=== PATIENT | female | born 1980 | race Caucasian/White ===

== ENCOUNTER 2023-01-15 15:28 | Emergency (ER) | payer OTHER, SELFPAY ==
--- NOTE | 2023-01-15 15:46 | ED.GENADULT ---
HPI - General Adult General Chief complaint: Shortness of Breath/Dyspnea Stated complaint: Shortness of Breath Time Seen by Provider: 01/15/23 15:46 Source: patient Mode of arrival: ambulatory Limitations: no limitations History of Present Illness HPI narrative: 42-year-old female patient presents to the [facility] with complaints of intermittent shortness of breath. Patient states she had COVID about 2 months ago and about 2 weeks ago received treatment for bronchitis and a sinus infection. Patient states that her coughing has resolved. Patient states that last night before bed she got an incident where she felt a little dizzy and felt like she was having shortness of breath. Patient states she went to go lay down and put her arms above her head and it eventually did go away. Denies any shortness of breath or chest pain currently. Denies any fevers or sick symptoms at this time. Patient states she was going to follow up with her doctor on Tuesday will want to come in today to make sure that there was no other physical symptoms of what could have cause the issues. Review of Systems Review of Systems: CONSTITUTIONAL: Denies fever, chills, or sweats. EYES: Denies visual changes, redness, or discharge. ENT: Denies rhinorrhea, congestion, sore throat, or otalgia. CARDIOVASCULAR: Denies chest pain, palpitations, or edema. RESPIRATORY: Denies cough Positive intermittent dyspnea. GASTROINTESTINAL: Denies abdominal pain, nausea, vomiting, or diarrhea. GENITOURINARY: Denies dysuria or hematuria. SKIN: Denies rash or itching. MUSCULOSKELETAL: Denies back pain, joint pain, or myalgia. NEUROLOGIC: Denies headache, numbness, or weakness. positive dizziness PSYCHIATRIC: Denies anxiety or depression. PMFSH Comments At the time of my signature I agree with nursing past medical history, surgical, social, and family history. There is no relevant family history pertinent to the presenting complaint. Exam Narrative: GENERAL: Well-appearing, well-nourished, and in no acute distress. HEAD: Normocephalic, atraumatic. EYES: PERRLA and EOMI. ENT: Nares clear, no rhinorrhea or epistaxis. Mucous membranes moist. bilateral TMs are clear no erythema or foreign bodies the canal. Posterior pharynx with no erythema, tonsillectomy, exudates or lesions present. NECK: Supple. No lymphadenopathy CHEST: Clear to auscultation. No respiratory distress. HEART: Regular rate and rhythm. No murmur heard. Normal peripheral pulses. ABDOMEN: Soft, nontender, nondistended, normal active bowel sounds. EXTREMITIES: Normal range of motion. No edema. SKIN: Warm, dry, no rash. NEURO: No focal deficits. Alert and oriented x3. Course Course Level of Care: Express Care Visit Vital Signs Vital signs: Vital Signs Temperature 36.3 C L 01/15/23 16:03 Pulse Rate 77 01/15/23 16:03 Respiratory Rate 18 01/15/23 16:03 Blood Pressure 128/80 01/15/23 16:03 Pulse Oximetry 100 01/15/23 16:03 Oxygen Delivery Room Air 01/15/23 16:03 Temperature 36.3 C L 01/15/23 16:03 Pulse Rate 77 01/15/23 16:03 Respiratory Rate 18 01/15/23 16:03 Blood Pressure 128/80 01/15/23 16:03 Pulse Oximetry 100 01/15/23 16:03 Oxygen Delivery Room Air 01/15/23 16:03 Vital signs reviewed Medical Decision Making MDM Narrative Medical decision making narrative: Plan care patient is to obtain an EKG to rule out any cardiac issues that could have been causing these episodes. Discussed with patient that if this looks okay she can follow up with her doctor for further evaluation. Her lungs sound nice and clear idea and I do not see any evidence of any lung infection or pneumonia at this time. Differential Diagnosis Differential Diagnosis: differential diagnoses Allergic rhinitis, chronic sinusitis, tonsillitis, acute sinusitis, infectious mononucleosis, seasonal influenza, pertussis, diphtheria, meningococcal disease, viral syndrome, viral bronchitis, RSV, COVID-19
[2023-01-15 16:03] VITALS: BP 128/80; PULSE 77; RESP 18; TEMP 36.3; O2SAT 100
--- NOTE | 2023-01-15 17:21 | ECG_ITS ---
Measurements Intervals [place] Rate: 69 P: 13 [place]: 185 QRS: 30 QRSD: 106 T: 28 QT: 388 QTc: 417 Interpretive Statements SINUS RHYTHM MINIMAL Q WAVES- INFERIOR LEADS BORDERLINE ECG NO PREVIOUS ECG AVAILABLE FOR COMPARISON Electronically Signed On 01-15-2023 21:38:02 CDT by Amaury Vicente D.O.
== END 2023-01-15 16:21 | disposition home or self-care (01) ==
PROVIDERS: Emergency Provider Nurse Practitioner Family
DX: F41.9 Anxiety disorder, unspecified (principal); R06.02 Shortness of breath; T50.B95A Adverse effect of other viral vaccines, initial encounter
CPT/HCPCS: 93005; 99203; G0463

== ENCOUNTER 2024-07-13 11:45 | Outpatient (CLI) | payer OTHER, SELFPAY ==
--- NOTE | ~2024-07-13 | MM_ITS ---
EXAMINATION: MM screening bridgette BI w jonathan HISTORY: Screening mammogram TECHNIQUE: Craniocaudal and mediolateral oblique 3-D tomosynthesis images were obtained and synthetic 2-D images were generated. CAD analysis was submitted and interpreted. COMPARISON: No prior mammogram is available for comparison at this institution. BREAST PARENCHYMAL COMPOSITION:Not Dense. There are scattered areas of fibroglandular density. FINDINGS: No suspicious mass, calcification, or architectural distortion are identified in either rachid ast to suggest malignancy. There has been no suspicious interval change. IMPRESSION: No mammographic evidence of malignancy. Recommend routine screening mammography in one year. BI-RADS Category 1: Negative Reviewed, dictated and finalized at location .
== END 2024-07-13 11:46 | disposition home or self-care (01) ==
LOC: MICIMG 11:46
PROVIDERS: PCP Nurse Practitioner; Visit Provider Nurse Practitioner
DX: Z12.31 Encounter for screening mammogram for malignant neoplasm of breast (principal)
CPT/HCPCS: 77063; 77067

== ENCOUNTER 2024-08-11 17:38 | Emergency (ER) | payer OTHER, SELFPAY ==
--- NOTE | ~2024-08-11 | XR_ITS ---
EXAMINATION: XR chest 2V Exam Date/Time: 08/11/2024 18:02 CDT HISTORY: cough, fever Comparison: None. RESULT: Lines, tubes, and devices: None. Lungs and pleura: Clear. Cardiomediastinal silhouette: Normal. Other: No acute osseous or upper abdominal finding. IMPRESSION: No acute cardiopulmonary process. Reviewed, dictated and finalized at location K.
[2024-08-11 17:48] VITALS: BP 111/59; PULSE 88; RESP 19; TEMP 37; O2SAT 99
--- NOTE | 2024-08-11 17:49 | ED.URI ---
HPI - URI/Sore Throat General Chief Complaint: Upper Respiratory Infection Stated Complaint: Sinus Time Seen by Provider: 08/11/24 17:49 Source: patient Mode of arrival: ambulatory Limitations: no limitations History of Present Illness HPI Narrative: 43 yo F presents with c/o congestion, runny nose, sore throat, cough for 3 days. Low grade fever. Symptoms started after upper endoscopy procedure. Called the office and explained symptoms and told her she probably had covid. Pt concerned she may have aspirated during endoscopy and possibly has pneumonia. NO CP or SOB but states has a lot of chest congestion . all systems reviewed and negative except as noted above. Related Data Home Medications Medication Instructions Recorded Confirmed atogepant 60 mg tablet (Qulipta) 60 mg PO DAILY 08/11/24 08/11/24 ubrogepant 100 mg tablet (Ubrelvy) 100 mg PO DAILY PRN Migraine 08/11/24 08/11/24 Headache zavegepant 10 mg/actuation nasal 1 spray intranasal DAILY 08/11/24 08/11/24 spray (Zavzpret) Allergies Allergy/AdvReac Type Severity Reaction Status Date / Time No Known Allergies Allergy Verified 08/11/24 18:14 Review of Systems Review of Systems: CONSTITUTIONAL: reports fever, chills, or sweats. EYES: Denies visual changes, redness, or discharge. ENT: Reports rhinorrhea, congestion, sore throat. Denies otalgia. CARDIOVASCULAR: Denies chest pain, palpitations, or edema. RESPIRATORY: reports cough, chest congestion. Denies dyspnea. GASTROINTESTINAL: Denies abdominal pain, nausea, vomiting, or diarrhea. GENITOURINARY: Denies dysuria or hematuria. SKIN: Denies rash or itching. MUSCULOSKELETAL: Denies back pain, joint pain, or myalgia. NEUROLOGIC: Denies headache, numbness, or weakness. PSYCHIATRIC: Denies anxiety or depression. All other systems reviewed are negative, except as documented in HPI. PMFSH Comments At time of signature, agree with nursing past medical, surgical, social and family history. There is no relevant family history pertinent to the presenting complaint. Exam Narrative: GENERAL: This is a well-nourished, well-developed patient, Ill-appearing but no acute distress. HEAD: normocephalic, atraumatic. EYES: PERRL. Sclera clear/white. Vision is grossly intact. EARS: External ears normal, auditory canals clear and without drainage, TMs normal without perforation. Hearing grossly intact. NOSE: External nose normal with Clear nasal drainage, mild congestion, erythema to bilateral nares THROAT: Mucous membranes moist, erythema, swelling. No exudates. NECK: Neck supple, non-tender without lymphadenopathy, masses or thyromegaly. CARDIOVASCULAR: Regular rate and rhythm without murmurs, gallops, or rubs. RESPIRATORY: Clear to auscultation. Breath sounds equal bilaterally. No wheezes, rales, or rhonchi. SKIN: warm, Dry, intact with no suspicious lesions or rash, good texture and turgor. NEURO: awake, alert, and oriented to person, place and time. There were no obvious focal neurologic abnormalities. EXTREMITIES: No joint tenderness, effusion, or edema noted. Course Course Level of Care: Express Care Visit Vital Signs Vital signs: Vital Signs Temperature 37.0 C 08/11/24 17:48 Pulse Rate 88 08/11/24 17:48 Respiratory Rate 19 08/11/24 17:48 Blood Pressure 111/59 L 08/11/24 17:48 Pulse Oximetry 99 08/11/24 17:48 Oxygen Delivery Room Air 08/11/24 17:48 Temperature 37.0 C 08/11/24 17:48 Pulse Rate 88 08/11/24 17:48 Respiratory Rate 19 08/11/24 17:48 Blood Pressure 111/59 L 08/11/24 17:48 Pulse Oximetry 99 08/11/24 17:48 Oxygen Delivery Room Air 08/11/24 17:48 reviewed MDM - URI/Sore Throat MDM Narrative Medical decision making narrative: negative strep and influenza test. Chest x-ray was normal. Discussed results with patient. Recommend she continue [id number] medications to treat viral symptoms. Patient nontoxic, lungs clear to
[2024-08-11 18:19] LABS: EDINFLUASCREEN Negative (Negative); EDINFLUBSCREEN Negative (Negative); EDSTREPNEGPOS1 Negative (Negative)
[2024-08-11 18:24] LABS: EDCOVIDSCREEN Negative (Negative)
== END 2024-08-11 18:50 | disposition home or self-care (01) ==
PROVIDERS: Emergency Provider Nurse Practitioner Family; PCP Nurse Practitioner
DX: J06.9 Acute upper respiratory infection, unspecified (principal); Z79.899 Other long term (current) drug therapy; Z20.822 Contact with and (suspected) exposure to COVID-19
CPT/HCPCS: 71046; 87081; 87426; 87804; 87880; 99213; G0463

== ENCOUNTER 2024-08-14 12:35 | Emergency (ER) | payer OTHER, SELFPAY ==
--- NOTE | ~2024-08-14 | XR_ITS ---
EXAMINATION: XR chest 2V DATE: 08/14/2024 13:09 INDICATION: One week of cough and fever TECHNIQUE: PA and lateral views of the chest were obtained. COMPARISON: Chest radiograph dated 08/11/2024 FINDINGS: There is a new region of subtle airspace opacity and bronchial wall thickening in the posterior left lower lung zone suspicious for pneumonia. No pleural effusion or pneumothorax. The cardiomediastinal silhouette is normal. Mild thoracic spondylosis. IMPRESSION: 1. Left lower lobe pneumonia. Reviewed, dictated and finalized at location A.
--- NOTE | 2024-08-14 12:45 | ED.URI ---
HPI - URI/Sore Throat General Chief Complaint: Upper Respiratory Infection Stated Complaint: cough / fever / SOB Time Seen by Provider: 08/14/24 12:59 Source: patient and RN notes reviewed Mode of arrival: ambulatory Limitations: no limitations History of Present Illness HPI Narrative: 43-year-old female presents with concern for ongoing cough and chest congestion. Reports she was here 3 days ago for these symptoms, at that time she has been having symptoms for 3 days. She was given prednisone and Tessalon Perles after having and negative chest x-ray, COVID, flu, strep test. She reports she is having some improvement during the day with the cough, reports the prednisone ?wears off? and the cough is worse particularly at night. She reports violent coughing fits that cause his her bladder to leak. She reports fevers MD elicited complaint: cough Related Data Home Medications Medication Instructions Recorded Confirmed atogepant 60 mg tablet (Qulipta) 60 mg PO DAILY 08/11/24 08/14/24 ubrogepant 100 mg tablet (Ubrelvy) 100 mg PO DAILY PRN Migraine 08/11/24 08/14/24 Headache zavegepant 10 mg/actuation nasal 1 spray intranasal DAILY 08/11/24 08/14/24 spray (Zavzpret) albuterol sulfate 90 mcg/actuation 1 inh inhalation DIRECTED 08/14/24 08/14/24 aerosol inhaler Allergies Allergy/AdvReac Type Severity Reaction Status Date / Time No Known Allergies Allergy Verified 08/11/24 18:14 Review of Systems Review of Systems: CONSTITUTIONAL: Denies malaise, chills, sweats, or fever. EYES: Denies visual changes, redness, or discharge. ENT: Denies rhinorrhea, congestion, sinus pain, otalgia and sore throat. CARDIOVASCULAR: Denies chest pain, palpitations, or edema. RESPIRATORY: Reports cough. Denies dyspnea. GASTROINTESTINAL: Denies abdominal pain, nausea, vomiting, diarrhea SKIN: Denies rash or itching. MUSCULOSKELETAL: Denies myalgia. NEUROLOGIC: Denies headache. All systems reviewed & are unremarkable except as noted in HPI and below PMFSH Comments At time of signature, agree with nursing past medical, surgical, social and family history. There is no relevant family history pertinent to the presenting complaint Exam Narrative: GENERAL: Well-appearing, well-nourished, and in no acute distress. HEAD: Normocephalic EYES: PERRLA, conjunctivae clear ENT: Nares clear. Mucous membranes moist. TM pearly aranda with dull light reflex bilaterally; no tragal tenderness. Oropharynx not erythematous without lesions. Tonsils not enlarged and without exudate, no drooling, no hoarseness, no trismus, uvula midline. NECK: Supple. No lymphadenopathy CHEST: Clear to auscultation, breath sounds equal. No wheezing, rhonchi, rales, or stridor. No respiratory distress, speaks in full sentences. Cough noted HEART: Regular rate and rhythm. No murmur heard. SKIN: Warm, dry, no rash. NEURO: Alert and oriented x3. PSYCH: Normal mood and affect Course Course Emergency Course: Patient is aware of diagnosis, understands and agrees to treatment plan. Anticipatory guidance given. Patient agrees to follow-up as directed and is aware of reasons to seek care at the emergency department. Portions of this record may have been created with voice recognition software Level of Care: Express Care Visit Vital Signs Vital signs: Reviewed. MDM - URI/Sore Throat MDM Narrative Medical decision making narrative: Differential diagnosis considered: Javier virus, strep pharyngitis, allergic rhinitis, upper respiratory tract infection, sinusitis, rhinosinusitis, nasopharyngitis. viral pharyngitis, otitis media, otitis externa, pneumonia, bronchitis, viral cough syndrome, viral syndrome, and influenza. Exam findings show no acute concerns or changes; patient is non-toxic appearing and is in no distress. Patient is appropriate for outpatient treatment and follow-up. Lab Data Attestation: I reviewed the patient's lab results. Imaging Data My impression:
[2024-08-14 12:46] VITALS: BP 113/69; PULSE 72; RESP 18; TEMP 36.3; O2SAT 100
== END 2024-08-14 13:32 | disposition home or self-care (01) ==
PROVIDERS: Emergency Provider Nurse Practitioner; PCP Nurse Practitioner
DX: J18.1 Lobar pneumonia, unspecified organism (principal); Z86.16 Personal history of COVID-19
CPT/HCPCS: 71046; 99213; G0463